=== PATIENT | female | born 1935 | race Caucasian/White ===

== ENCOUNTER 2017-04-27 11:17 | Emergency (ER) | payer OTHER ==
[2017-04-27 11:27] VITALS: RESP 16
--- NOTE | 2017-04-27 11:29 | EDPHY ---
H & P Time Seen by Provider: 04/27/17 11:26 HPI/ROS: 82-year-old female with history of hypertension, hyperlipidemia, non-insulin- dependent diabetes presents complaining of left ankle pain, she twisted her ankle approximately 3 days ago and has continued to be painful and swollen. She denies other complaints at this time. She admits that she has mild dementia and often forgets many details however she has her sister Noa here with her who was able to fill in details. Review of systems As per HPI General no fever no chills no weakness HEENT no eye pain no eye discharge. No eye redness, no sore throat Respiratory no cough, no shortness of breath Cardiac no chest pain, no peripheral edema GI no abdominal pain, no diarrhea, no constipation, no nausea, no vomiting no flank pain, no hematuria, no dysuria Musculoskeletal no myalgias, positive joint pain Heme no easy bruising, no easy bleeding Endo no polyuria, no polydipsia Skin no rashes, no pruritus Neuro no syncope, no dizziness, no headaches Psych is no suicidal ideation, no homicidal ideation Past Medical/Surgical History: Hypertension, hyperlipidemia, [id number] diabetes Social History: Lives with her sister Denies alcohol drug or tobacco use Smoking Status: Never smoked Physical Exam: 82-year-old female alert, oriented, nontoxic appearing, afebrile Patient is able to ambulate with a walker Atraumatic normocephalic Neck no JVD Lungs clear to auscultation bilaterally Heart regular rate and rhythm Abdomen NABS, soft, nontender Extremities left lower extremity with mild swelling at lateral malleolus tender just inferior to malleolus as well as tenderness over the proximal left visit metatarsal, no ecchymosis, pulses intact, good capillary refill No gross deformity No calf tenderness, no erythema, no lymphangitic streaks Constitutional: Initial Vital Signs Temperature (C) 36.5 C 04/27/17 11:21 Heart Rate 63 04/27/17 11:21 Respiratory Rate 16 04/27/17 11:21 Blood Pressure 167/81 H 04/27/17 11:21 O2 Sat (%) 92 04/27/17 11:21 O2 Delivery Mode Room Air Allergies/Adverse Reactions: adhesive tape [Adhesive Tape] Allergy (Verified 04/27/17 11:34) Pt reports BLISTERS SKIN bacitracin [From Neosporin ([id number])] Allergy (Verified 04/27/17 11:28) Pt reports rash bacitracin zinc [From Neosporin ([id number])] Allergy (Verified 04/27/17 11: 28) Pt reports rash codeine [Codeine] Allergy (Verified 04/27/17 11:34) Pt reports nausea neomycin sulfate [From Neosporin ([id number])] Allergy (Verified 04/27/17 11: 28) Pt reports rash polymyxin B [From Neosporin ([id number])] Allergy (Verified 04/27/17 11:28) Pt reports rash Home Medications: Medication Instructions Recorded Atorvastatin Calcium [Lipitor 20 10/15/12 mg (RX)] Butal/Asp/Caffeine-Fiorinal 10/15/12 [Fiorinal 50-325-40 mg Cap] Chlordiaz/Clidiniu 5/2.5 [Librax 10/15/12 (*)] LORazepam [Ativan 0.5 mg (RX)] 10/15/12 Lisinopril [Zestril 30 mg] 10/15/12 Omeprazole 10/15/12 metFORMIN HCL [Glucophage 850 mg 10/15/12 (RX)] Advair 100/50 (*) 04/27/17 Albuterol 04/27/17 Donepezil HCl 04/27/17 Lexapro 04/27/17 Voltaren 04/27/17 Medical Decision Making - Diagnostics Imaging Results: Imaging Impressions Ankle X-Ray 04/27/17 11:38 Impression: Possibly a subtle distal fibular hairline fracture, without angulation or displacement. Recommend follow-up radiography, as clinically directed. 2. Left Foot, 2 Views Clinical Indications: Lateral pain and swelling, possible Rashid fracture Findings: There is diffuse severe osteoporosis. No fracture or dislocation is identified. There is hypertrophic change associated with the proximal fifth metatarsal. Impression: No Rashid or other lateral foot fracture identified. Foot X-Ray 04/27/17 11:39 Impression: Possibly a subtle distal fibular hairline fracture, without angulation or displacement. Recommend follow-up radiography, as clinically directed. 2. Left Foot, 2 Views Clinical Indications: Lateral pain and swelling, possible Rashid fracture Findings: There is diffuse severe osteoporosis. No fracture or dislocation is identified. There is hypertrophic change associated with the proximal fifth metatarsal. Impression: No Rashid or other lateral foot fracture identified. ED Course/Re-evaluation: Patient seen and evaluated for left ankle pain of 3 days duration, states she twisted it. X-ray Possible distal fibula hairline fracture Impression Left ankle sprain Left ankle possible distal fibular hairline fracture Plan CAM boot Follow-up with PCP Dr. Gray next Sunday Differential Diagnosis: Differential diagnosis considered but not limited to Ankle sprain, ankle fracture, gout, arthritis Departure - Departure Disposition: Home, Routine, Self-Care Clinical Impression: Left ankle sprain, Fracture of distal fibula Condition: Good Instructions: Ankle Fracture (ED), Ankle Sprain (ED) Additional Instructions: Follow up with Dr Gray, at that time she can decide if you will need orthopedic follow up. Wear boot when walking. Referrals: Fina Gray MD [Primary Care Provider] - As per Instructions
[2017-04-27 12:46] VITALS: BP 151/98; PULSE 61; TEMP 97.3; O2SAT 94
== END 2017-04-27 12:45 | disposition home or self-care (01) ==
LOC: CED 11:17
DX: S82.832A Other fracture of upper and lower end of left fibula, initial encounter for closed fracture (principal); S93.402A Sprain of unspecified ligament of left ankle, initial encounter; I10 Essential (primary) hypertension; E11.9 Type 2 diabetes mellitus without complications; Z79.84 Long term (current) use of oral hypoglycemic drugs; X58.XXXA Exposure to other specified factors, initial encounter
CPT/HCPCS: 73610; 73620; 99283; L4386

== ENCOUNTER → 2018-04-05 | Outpatient (CLI) | payer OTHER | LOC: SBRMNEURO 20:00 | PROVIDERS: ATTEND Internal Medicine Sleep Medicine | DX: G47.33 Obstructive sleep apnea (adult) (pediatric) (principal); G47.61 Periodic limb movement disorder ==